=== PATIENT | male | born 1965 | race American Indian/Alaskan Native ===

== ENCOUNTER 2017-07-05 10:57 | Emergency (ER) | payer SELFPAY ==
[2017-07-05 11:51] LABS: Hematocrit 39.9 % (35.5-45.6); Hemoglobin 12.8 gm/dl (11.8-15.2); Mean Corpuscular HGB Conc 32 % (32-34); Mean Corpuscular Volume 73 fl (84-94); White Blood Count 5.1 K/mm3 (4.5-11.0)
[2017-07-05 12:02] LABS: Mean Corpuscular Hemoglobin 23 pg (28-32)
--- NOTE | 2017-07-05 12:20 | Emergency Department Report ---
ED General Adult HPI - General Chief complaint: High BP Stated complaint: HYPERTENSIVE Time Seen by Provider: 07/05/17 12:14 Source: patient Mode of arrival: Ambulatory Limitations: No Limitations - History of Present Illness Initial comments: The patient states that he has been out of his blood pressure medicine for at least 2 weeks. He didn't bring it along. He does not recall what he was previously taking. He is otherwise asymptomatic. -: week(s) - Related Data Previous Rx's Medication Instructions Recorded Last Taken Type Lisinopril/Hydrochlorothiazide 1 each PO QDAY #30 tab 07/05/17 Unknown Rx [Zestoretic 20-12.5 mg] Allergies Allergy/AdvReac Type Severity Reaction Status Date / Time No Known Allergies Allergy Unverified 07/05/17 11:14 ED Review of Systems ROS: Stated complaint: HYPERTENSIVE Other details as noted in HPI Constitutional: denies: chills, fever Eyes: denies: eye pain, eye discharge, vision change ENT: denies: ear pain, throat pain Respiratory: denies: cough, shortness of breath, wheezing Cardiovascular: denies: chest pain, palpitations Endocrine: no symptoms reported Gastrointestinal: denies: abdominal pain, nausea, diarrhea Genitourinary: denies: urgency, dysuria Musculoskeletal: denies: back pain, joint swelling, arthralgia Skin: denies: rash, lesions Neurological: denies: headache, weakness, paresthesias Psychiatric: denies: anxiety, depression Hematological/Lymphatic: denies: easy bleeding, easy bruising ED Past Medical Hx - Past Medical History Hx Hypertension: Yes - Surgical History Past Surgical History?: No - Social History Smoking Status: Never Smoker Substance Use Type: Alcohol - Medications Home Medications: Home Medications Medication Instructions Recorded Confirmed Last Taken Type Lisinopril/Hydrochlorothiazide 1 each PO QDAY #30 tab 07/05/17 Unknown Rx [Zestoretic 20-12.5 mg] ED Physical Exam - General Limitations: No Limitations General appearance: alert, in no apparent distress - Head Head exam: Present: atraumatic, normocephalic - Eye Eye exam: Present: normal appearance - ENT ENT exam: Present: mucous membranes moist - Neck Neck exam: Present: normal inspection - Respiratory Respiratory exam: Present: normal lung sounds bilaterally. Absent: respiratory distress - Cardiovascular Cardiovascular Exam: Present: regular rate, normal rhythm. Absent: systolic murmur, diastolic murmur, rubs, gallop - GI/Abdominal GI/Abdominal exam: Present: soft, normal bowel sounds. Absent: distended, tenderness - Rectal Rectal exam: Present: deferred - Extremities Exam Extremities exam: Present: normal inspection. Absent: pedal edema - Back Exam Back exam: Present: normal inspection - Neurological Exam Neurological exam: Present: alert, oriented X3, CN II-XII intact, normal gait. Absent: motor sensory deficit - Psychiatric Psychiatric exam: Present: normal affect, normal mood - Skin Skin exam: Present: warm, dry, intact, normal color. Absent: rash ED Course Vital Signs 07/05/17 11:14 Temperature 98.1 F Pulse Rate 76 Respiratory 17 Rate Blood Pressure 193/107 O2 Sat by Pulse 98 Oximetry - Reevaluation(s) Reevaluation #1: Patient's repeat blood pressure was 189/97. He is asymptomatic. 07/05/17 12:36 ED Medical Decision Making - Lab Data Result diagrams: 07/05/17 11:21 07/05/17 11:21 Laboratory Results - last 24 hr 07/05/17 11:21 WBC 5.1 RBC 5.50 H Hgb 12.8 Hct 39.9 MCV 73 L MCH 23 L MCHC 32 RDW 15.0 Laboratory reported a platelet count of 225,000 to me Critical care attestation.: If time is entered above; I have spent that time in minutes in the direct care of this critically ill patient, excluding procedure time. ED Disposition Clinical Impression: Uncontrolled hypertension Disposition: DC-01 TO HOME OR SELFCARE Is pt being admited?: No Does the pt Need Aspirin: No Condition: Stable Instructions: Hypertension (ED) Additional Instructions: Return any acute change or problem. Follow-up at this outside medical clinic or primary care provider. Prescriptions: Lisinopril/Hydrochlorothiazide [Zestoretic 20-12.5 mg] 1 each PO QDAY #30 tab Referrals: PRIMARY CARE, [Primary Care Provider] - 3-5 Days [facility] [Provider Group] - 3-5 Days Time of Disposition: 12:37
[2017-07-05 12:25] LABS: Anion Gap 18 mmol/L; BUN/Creatinine Ratio 18.57; Blood Urea Nitrogen 13 mg/dL (9-20); Calcium 8.9 mg/dL (8.4-10.2); Carbon Dioxide 24 mmol/L (22-30); Glucose 96 mg/dL (75-100); Potassium 4.1 mmol/L (3.6-5.0); Sodium 138 mmol/L (137-145)
[2017-07-05 12:33] LABS: Anisocytosis 1+; Basophils % (Manual) 0 % (0.0-1.8); Blastocytes % (Manual) 0 %; Hypochromasia 1+
[2017-07-05 12:34] LABS: Diff Status Complete; Elliptocytes 1+; Hypersegmented Neutrophils Rare; Large Platelets Few; Platelet Estimate Cons; Poikilocytosis 1+
[2017-07-05 12:35] LABS: Platelet Count 224 K/mm3 (140-440)
[2017-07-05 12:37] VITALS: BP 201/104
== END 2017-07-05 12:58 | disposition home or self-care (01) ==
LOC: ED 10:57
DX: I10 Essential (primary) hypertension (principal)
CPT/HCPCS: 36415; 80048; 85007; 85025; 99283